=== PATIENT | female | born 1960 | race Caucasian/White ===

== ENCOUNTER 2017-03-16 11:37 | Emergency (ER) | payer MEDICARE, MEDICAID ==
--- NOTE | 2017-03-16 12:41 | Diagnostic Imaging Report ---
[facility] [address] [facility].[address] 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 Pain, swelling and bruising medially. FINDINGS: Examination right foot in plantar, lateral and oblique views demonstrates degenerative changes with narrowing of the interphalangeal joints and the 1st metatarsophalangeal joint. There is no evident fracture and no lytic or blastic lesion. IMPRESSION: Degenerative changes. No fracture. Electronically signed on Mar 16, 2017 12:22:45 PM CDT by: Hugo FINLEY
--- NOTE | 2017-03-16 12:42 | Diagnostic Imaging Report ---
[facility] [address] [facility].[address] [address] Report Submission Date: Mar 16, 2017 12:29:22 PM CDT Patient Study Name: MARKY JOSHI Date: Mar 16, 2017 11:54:18 AM CDT Modality Type: CR Gender: F Description: LOWER EXTREMITY : 58 Institution: [facility] Physician PRESTON VARGAS ([employer]) - ER Right ankle-three views CLINICAL HISTORY: Fall on Thursday. Pain, swelling and bruising. FINDINGS: Examination of the right ankle in AP, lateral oblique views fails to demonstrate evidence of fracture dislocation. The ankle mortise is anatomic. There is no lytic or blastic lesion. Intra-articular fracture of the base of the 2nd and 3rd metatarsals is demonstrated with questionable fracture of the base of the 4th metatarsal. IMPRESSION: Fractures of the bases the 2nd and 3rd metatarsals with questionable fracture of base of the 4th metatarsal. Electronically signed on Mar 16, 2017 12:29:22 PM CDT by: Hugo FINLEY
--- NOTE | 2017-03-16 12:53 | ED Physician Documentation ---
Lower Extremity Injury - HISTORIAN Historian: patient - HPI Stated Complaint: fell pain in right foot Chief Complaint: Lower Extremity Injury Onset: days ago (Thursday) Where: home Severity: severe Context: fall Associated Symptoms:: numbness distally, swelling, snapping sensation, popping sensation, unable to bear weight Modifying Factors:: pain on movement - ROS CONST: no problems CVS/RESP: none GI/: denies: nausea, vomiting MS/SKIN/LYMPH: none NEURO: denies: head injury - PAST HX Past History: other (Fibromyalgia, bipoar, arthritis, HTN; appendectomy, hysterectomy, right elbow ORIF) Allergies/Adverse Reactions: Allergies Allergy/AdvReac Type Severity Reaction Status Date / Time carisoprodol [From Soma] AdvReac Hives Verified 03/16/17 11:54 divalproex sodium AdvReac Serum Verified 03/16/17 11:54 [From Depakote] Sickness lithium AdvReac Hallucinati Verified 03/16/17 11:54 ons Home Medications: Ambulatory Orders Medication Instructions Recorded Atorvastatin Calcium [Atorvastatin 40 mg PO DAILY 03/16/17 Calcium] Buspirone HCl [Buspar] 30 mg PO DAILY 03/16/17 Carvedilol [Coreg] 3.135 mg PO BID 03/16/17 Dexlansoprazole [Dexilant] 60 mg PO DAILY 03/16/17 Furosemide [Lasix] 20 mg PO DAILY 03/16/17 Hydroxyzine HCl [Atarax] 25 mg PO Q4 PRN 03/16/17 Linaclotide [Linzess] 290 mcg PO DAILY 03/16/17 Morphine Sulfate/Naltrexone 1 cap PO DAILY 03/16/17 [Embeda ER 20-0.8 mg Capsule] Oxcarbazepine [Trileptal] 600 mg PO BID 03/16/17 Pot Chloride/Anton Phos/Mag 1 tab PO BID 03/16/17 [Medi-Lyte Tablet] Ropinirole HCl [Requip] 3 mg PO HS 03/16/17 Thyroid,Pork [Nature-Throid] 97.5 mg PO DAILY 03/16/17 Tizanidine HCl [Zanaflex] 4 mg PO Q8 PRN 03/16/17 Topiramate [Topamax] 50 mg PO BID 03/16/17 Venlafaxine HCl [Effexor Xr] 300 mg PO DAILY 03/16/17 Verapamil HCl [Calan] 40 mg PO DAILY 03/16/17 Zaleplon [Sonata] 10 mg PO DAILY 03/16/17 Ziprasidone HCl [Geodon] 60 mg PO BID 03/16/17 clonazePAM [Klonopin] 1 mg PO QID 03/16/17 - SOCIAL HX Smoking History: cigarettes - FAMILY HX Family History: none - VITAL SIGNS Vital Signs: Vital Signs Temp Pulse Resp BP Pulse Ox 72 20 122/71 96 03/16/17 13:51 03/16/17 13:51 03/16/17 13:51 03/16/17 13:51 - REVIEWED ASSESSMENTS Nursing Assessment Reviewed: Yes Vitals Reviewed: Yes Progress - Progress Progress: Reviewed plan of care with patient and friend. OCL applied by nursing, prompt cap refill. Ortho referral provided. Reviewed discharge instructions, patient verbalized understanding. - EKG/XRAY/CT XRAY: ankle (foot with fractures at base of 2, 3 and 4th metatarsals. ) ED Results Lab/Radiology - Radiology Radiology Impressions: Right ankle-three views CLINICAL HISTORY: Fall on Thursday. Pain, swelling and bruising. FINDINGS: Examination of the right ankle in AP, lateral oblique views fails to demonstrate evidence of fracture dislocation. The ankle mortise is anatomic. There is no lytic or blastic lesion. Intra-articular fracture of the base of the 2nd and 3rd metatarsals is demonstrated with questionable fracture of the base of the 4th metatarsal. IMPRESSION: Fractures of the bases the 2nd and 3rd metatarsals with questionable fracture of base of the 4th metatarsal. Electronically signed on Mar 16, 2017 12:29:22 PM CDT by: Hugo Presley - Orders Orders: ED Orders Category Date Time Status Short Leg Splint 1T Care 03/16/17 12:41 Active ANKLE 3 VIEWS OR MORE [RAD] Stat Exams 03/16/17 Completed FOOT 3 VIEWS OR MORE [RAD] Stat Exams 03/16/17 Completed Lower Extremities Injury Phy - Physical Exam General Appearance: mild distress Hips: bilateral hip: non-tender, normal inspection, normal range of motion, no evidence of injury Knees: bilateral: non-tender, normal inspection, normal range of motion, no evidence of injury Ankle: right: non-tender, normal inspection, normal range of motion, no evidence of injury, left: bone tenderness, deformity, limited range of motion, pain, soft tissue tenderness, swelling Foot: right foot: non-tender, normal inspection, normal range of motion, no evidence of injury, left foot: limited range of motion, pain, soft tissue tenderness, swelling Gait: limited by pain, unable to bear weight Neuro/Vascular/Tendon: no vascular compromise, motor nml, sensation nml, ROM nml Resp/CVS: chest non-tender, breath sounds nml, heart sounds nml, no resp. distress, lungs clear, reg. rate & rhythm Abdomen: non-tender, pelvis stable Discharge Clincal Impression: Multiple closed fractures of metatarsal bone Qualifiers: Encounter type: initial encounter Laterality: left Qualified Code(s): S92.302A - Fracture of unspecified metatarsal bone(s), left foot, initial encounter for closed fracture Referrals: Gen Ortega DO [Primary Care Provider] - 2 Days Home Medications: Ambulatory Orders Atorvastatin Calcium [Atorvastatin Calcium] 40 mg PO DAILY 03/16/17 Buspirone HCl [Buspar] 30 mg PO DAILY 03/16/17 Carvedilol [Coreg] 3.135 mg PO BID 03/16/17 Dexlansoprazole [Dexilant] 60 mg PO DAILY 03/16/17 Furosemide [Lasix] 20 mg PO DAILY 03/16/17 Hydroxyzine HCl [Atarax] 25 mg PO Q4 PRN 03/16/17 Linaclotide [Linzess] 290 mcg PO DAILY 03/16/17 Morphine Sulfate/Naltrexone [Embeda ER 20-0.8 mg Capsule] 1 cap PO DAILY Oxcarbazepine [Trileptal] 600 mg PO BID 03/16/17 Pot Chloride/Anton Phos/Mag [Medi-Lyte Tablet] 1 tab PO BID 03/16/17 Ropinirole HCl [Requip] 3 mg PO HS 03/16/17 Thyroid,Pork [Nature-Throid] 97.5 mg PO DAILY 03/16/17 Tizanidine HCl [Zanaflex] 4 mg PO Q8 PRN 03/16/17 Topiramate [Topamax] 50 mg PO BID 03/16/17 Venlafaxine HCl [Effexor Xr] 300 mg PO DAILY 03/16/17 Verapamil HCl [Calan] 40 mg PO DAILY 03/16/17 Zaleplon [Sonata] 10 mg PO DAILY 03/16/17 Ziprasidone HCl [Geodon] 60 mg PO BID 03/16/17 clonazePAM [Klonopin] 1 mg PO QID 03/16/17 Condition: Good Disposition: 01 HOME, SELF-CARE Decision to Admit: NO Decision Time: 13:30
[2017-03-16 13:53] VITALS: BP 122/71
== END 2017-03-16 13:51 | disposition home or self-care (01) ==
LOC: ED 11:37
DX: S92.302A Fracture of unspecified metatarsal bone(s), left foot, initial encounter for closed fracture (principal); W19.XXXA Unspecified fall, initial encounter; Y93.9 Activity, unspecified; Y99.9 Unspecified external cause status
CPT/HCPCS: 73610; 73630; 99283; 99284

== ENCOUNTER 2018-03-23 14:18 | Outpatient (CLI) | payer MEDICARE, MEDICAID | END 2018-03-23 14:20 | LOC: CARD 14:18 | PROVIDERS: ATTEND Internal Medicine Cardiovascular Disease | DX: R55 Syncope and collapse (principal); I35.1 Nonrheumatic aortic (valve) insufficiency; E78.5 Hyperlipidemia, unspecified; I10 Essential (primary) hypertension; Z72.0 Tobacco use; Z79.899 Other long term (current) drug therapy | CPT/HCPCS: G0463 ==

== ENCOUNTER 2018-05-04 13:37 | Outpatient (CLI) | payer MEDICARE, OTHER | END 2018-05-04 13:40 | LOC: CARD 13:37 | PROVIDERS: ATTEND Internal Medicine Cardiovascular Disease | DX: R55 Syncope and collapse (principal); I34.0 Nonrheumatic mitral (valve) insufficiency; E78.5 Hyperlipidemia, unspecified; I10 Essential (primary) hypertension; Z72.0 Tobacco use | CPT/HCPCS: G0463 ==

== ENCOUNTER 2018-06-15 11:25 | Outpatient (CLI) | payer MEDICARE, OTHER | END 2018-06-15 11:26 | LOC: CARD 11:25 | PROVIDERS: ATTEND Internal Medicine Cardiovascular Disease | DX: R55 Syncope and collapse (principal); I35.1 Nonrheumatic aortic (valve) insufficiency; E78.5 Hyperlipidemia, unspecified; I10 Essential (primary) hypertension; R07.9 Chest pain, unspecified | CPT/HCPCS: G0463 ==

== ENCOUNTER 2018-11-04 20:13 | Emergency (ER) | payer MEDICARE, OTHER ==
--- NOTE | 2018-11-04 20:58 | ED Physician Documentation ---
Abdominal Pain - HISTORIAN Historian: patient - HPI Stated Complaint: LLQ abdominal pain Chief Complaint: Abdominal Pain Additonal Information: Patient presents to ED with a one week history of increasing LLQ pain, worsening constipation. Patient states she has a history of diverticulitis and she states these are the symptoms she has when she has a flare. Onset: days ago (7) Duration: gradual Timing: worse Context: denies: out of country travel, bad food Severity: moderate Quality: pain, aching, dull, cramping Associated Symptoms: denies: fever, chills, nausea, vomiting, diarrhea Exacerbated by: movements Relieved by: nothing - ROS CONST: no problems GI/: constipation CVS/RESP: none EYES/ENT: none MS/SKIN/LYMPH: none NEURO/PSYCH: none - SOCIAL HX Smoking History: cigarettes, greater than 1 pack/day Alcohol Use: none Drug Use: none - FAMILY HX Family History: none - PAST HX Past History: none Other History: none Surgeries/Procedures: appendectomy, hysterectomy Home Medications: Ambulatory Orders Medication Instructions Recorded Atorvastatin Calcium 40 mg PO DAILY 03/16/17 Buspirone HCl [Buspar] 30 mg PO DAILY 03/16/17 Carvedilol [Coreg] 3.135 mg PO BID 03/16/17 Dexlansoprazole [Dexilant] 60 mg PO DAILY 03/16/17 Furosemide [Lasix] 20 mg PO DAILY 03/16/17 Hydroxyzine HCl [Atarax] 25 mg PO Q4 PRN 03/16/17 Linaclotide [Linzess] 290 mcg PO DAILY 03/16/17 Morphine Sulfate/Naltrexone 1 cap PO DAILY 03/16/17 [Embeda ER 20-0.8 mg Capsule] Oxcarbazepine [Trileptal] 600 mg PO BID 03/16/17 Pot Chloride/Anton Phos/Mag 1 tab PO BID 03/16/17 [Medi-Lyte Tablet] Ropinirole HCl [Requip] 3 mg PO HS 03/16/17 Thyroid,Pork [Nature-Throid] 97.5 mg PO DAILY 03/16/17 Tizanidine HCl [Zanaflex] 4 mg PO Q8 PRN 03/16/17 Topiramate [Topamax] 50 mg PO BID 03/16/17 Venlafaxine HCl [Effexor Xr] 300 mg PO DAILY 03/16/17 Verapamil HCl [Calan] 40 mg PO DAILY 03/16/17 Zaleplon [Sonata] 10 mg PO DAILY 03/16/17 Ziprasidone HCl [Geodon] 60 mg PO BID 03/16/17 clonazePAM [Klonopin] 1 mg PO QID 03/16/17 Amoxicillin/Potassium Clav 1 each PO BID #28 tablet 11/04/18 [Augmentin 875Mg/125Mg] Sennosides [Senokot] 17.2 mg PO HS 11/04/18 metroNIDAZOLE [Flagyl] 500 mg PO Q6H #56 tablet 11/04/18 Allergies/Adverse Reactions: Allergies Allergy/AdvReac Type Severity Reaction Status Date / Time acetaminophen [From Tylenol] Allergy Verified 11/04/18 22:50 carisoprodol [From Soma] AdvReac Hives Verified 03/16/17 11:54 divalproex sodium AdvReac Serum Verified 03/16/17 11:54 [From Depakote] Sickness lithium AdvReac Hallucinati Verified 03/16/17 11:54 ons - VITAL SIGNS Vital Signs: Vital Signs Temp Pulse Resp BP Pulse Ox 98.3 F 94 H 14 157/81 99 11/04/18 20:14 11/04/18 20:14 11/04/18 20:14 11/04/18 20:14 11/04/18 20:14 - REVIEWED ASSESSMENTS Nursing Assessment Reviewed: Yes Vitals Reviewed: Yes Progress - Results/Orders Results/Orders: UA - negative ED Results Lab/Radiology - Lab Results Lab Results: Lab Results 11/04/18 11/04/18 11/04/18 21:50 21:25 21:25 WBC 19.20 K/ul H K/ul (4.00-12.00) RBC 5.11 M/ul M/ul (3.90-5.20) Hgb 15.1 g/dL g/dL (12.0-16.0) Hct 45.9 % % (34.5-46.5) MCV 90.0 fl fl (80.0-100.0) MCH 29.6 pg pg (28.0-34.0) MCHC 32.9 g/dL g/dL (30.0-36.0) RDW 14.0 % % (11.3-14.3) Plt Count 172 K/mm3 K/mm3 (130-400) Neut % (Auto) 77.9 % % (39.0-79.0) Lymph % (Auto) 13.5 % L % (16.0-50.0) [place] % (Auto) 6.7 % % (0.0-11.0) Eos % (Auto) 1.0 % % (0.0-6.8) Baso % (Auto) 0.9 (0.0-1.5) Neut # (Auto) 14.9 # k/uL H # k/uL (1.4-7.7) Lymph # (Auto) 2.6 # k/uL # k/uL (0.6-4.0) [place] # (Auto) 1.3 # k/uL H # k/uL (0.0-0.9) Eos # (Auto) 0.2 # k/uL # k/uL (0.0-0.6) Baso # (Auto) 0.2 # k/uL # k/uL (0.0-0.5) Sodium 134 mmol/L L mmol/L (136-145) Potassium 3.4 mmol/L L mmol/L (3.5-5.1) Chloride 101 mmol/L mmol/L (98-107) Carbon Dioxide 28 mmol/L mmol/L (22-30) BUN 14 mg/dL mg/dL (7-17) Creatinine 0.60 mg/dL mg/dL (0.52-1.04) Estimated Creat Clear 140 Est GFR ( Amer) > 60 (60 - ) Est GFR (Non-Af Amer) > 60 (60 - ) Glucose 106 mg/dL mg/dL (74-106) Calcium 9.2 mg/dL mg/dL (8.4-10.2) Total Bilirubin 1.0 mg/dL mg/dL (0.2-1.3) AST 30 U/L U/L (15-46) ALT 17 U/L U/L (13-69) Alkaline Phosphatase 147 U/L H U/L (38-126) Total Protein 7.2 g/dL g/dL (6.3-8.2) Albumin 4.3 g/dL g/dL (3.5-5.0) Urine Color Chantel (YELLOW) Urine Appearance Clear (CLEAR) Urine pH 6.0 (5.0 - 8.0) Ur Specific Stanton >=1.030 H (1.010-1.030) Urine Protein 2+ mg/dL H mg/dL (NEGATIVE) Urine Ketones 4+ mg/dL H mg/dL (NEGATIVE) Urine Occult Blood 1+ H (NEGATIVE) Urine Nitrite Negative (NEGATIVE) Urine Bilirubin 2+ H (NEGATIVE) Urine Urobilinogen 1.0 Eu Eu (0.2-1.0) Ur Leukocyte Esterase Negative (NEGATIVE) Urine Glucose Negative mg/dL mg/dL (NEGATIVE) - Radiology Radiology Impressions: Computed tomography abdomen pelvis without contrast History: Left lower quadrant pain. History of diverticulitis, appendectomy, hysterectomy Findings: Transverse abdomen and pelvis sections are obtained without contrast. There are no comparisons. The lung bases are clear. Cholelithiasis and upper normal caliber gallbladder are observed without mural thickening or biliary duct dilatation. The liver, kidneys, adrenals, spleen, pancreas, and mesenteric structures are unremarkable. Fluid is present in multiple normal caliber small bowel loops and the right colon. Minimal aortic atherosclerosis is present. Multilevel lumbar facet arthropathy is present. Numerous sigmoid diverticula and diffuse sigmoid mural thickening are observed with moderate perisigmoid inflammation. Hysterectomy and appendectomy been performed. The urinary bladder is decompressed. Impression: 1. Diffuse sigmoid mural thickening and numerous sigmoid diverticula with extensive surrounding inflammation. Differential includes acute diverticulitis versus sigmoid colitis. 2. Cholelithiasis. 3. Hysterectomy and appendectomy. Electronically signed on Nov 04, 2018 10:47:58 PM PATIENT SERVICES REPRESENTATIVE by: Kennedy Silva - Orders Orders: ED Orders Category Date Time Status Place IV Lock 1T Care 11/04/18 20:[address] ABD & PELVIS W/O CON Stat Exams 11/04/18 Taken CBC/PLATELET/DIFF Routine Lab 11/04/18 21:25 Completed CMP Routine Lab 11/04/18 21:25 Completed UA MACRO DIP ONLY Routine Lab 11/04/18 21:50 Completed 0.9 % Sodium Chloride [Normal Saline] 1,000 ml Med 11/04/18 21:22 Discontinued IV Q1H Ciprofloxacin HCl [Cipro] Med 11/04/18 22:31 Discontinued 500 mg PO NOW ONE HYDROcodone /APAP 5/325 [[place] 5/325] Med 11/04/18 22:37 Stop Req 1 each PO NOW ONE fentaNYL CITRATE/PF Med 11/04/18 22:51 Once 25 mcg IVP NOW ONE metroNIDAZOLE [Flagyl] Med 11/04/18 22:31 Discontinued 500 mg PO NOW ONE Abdominal Pain Physical Exam - Physical Exam General Appearance: no acute distress, alert EENT: DIAMOND NECK: supple RESPIRATORY: no resp distress, chest non-tender, breath sounds normal CVS: reg rate & rhythm, heart sounds normal ABDOMEN: soft, normal bowel sounds, tenderness (suprapubic, LLQ) BACK: no CVA tenderness SKIN: warm/dry, normal color EXTREMITIES: non-tender, no edema NEURO: oriented X3, motor nml Vital Signs: Vital Signs Temp Pulse Resp BP Pulse Ox 98.3 F 94 H 14 157/81 99 11/04/18 20:14 11/04/18 20:14 11/04/18 20:14 11/04/18 20:14 11/04/18 20:14 Discharge Clincal Impression: Diverticulitis large intestine Qualifiers: Diverticulitis bleeding: without bleeding Diverticulitis complication: without perforation or abscess Qualified Code(s): K57.32 - Diverticulitis of large intestine without perforation or abscess without bleeding Prescriptions: Amoxicillin/Potassium Clav [Augmentin 875Mg/125Mg] 1 each PO BID #28 tablet metroNIDAZOLE [Flagyl] 500 mg PO Q6H #56 tablet Referrals: Angel Beth MD [Primary Care Provider] - 2 Days Additional Instructions: 1. Take antibiotic as directed, complete the course 2. Narcotic pain medications will cause constipation. Use a senokot, colace, miralax daily while taking these medications 3. Follow up with PCP within 1 week 4. Return to ER for new or worsening symptoms. Comments: Cipro and Flagyl would be ideal antibiotic regimen, however, Trileptal and Tizandine interact. Will give Augmentin instead of Cipro. Condition: Stable Disposition: 01 HOME, SELF-CARE Decision to Admit: NO Date of Decison to Admit: 11/04/18 Decision Time: 23:02
[2018-11-04] MEDS ORDERED: 0.9 % SODIUM CHLORIDE 1,000 ML IV ONE (21:22)
[2018-11-04 21:57] LABS: eGFR (Non-African) > 60
[2018-11-04 21:58] LABS: BASOPHILS % 0.9 (0.0-1.5); MEAN CORPUSCULAR HEMOGLOBIN 29.6 pg (28.0-34.0); MONOCYTES % 6.7 % (0.0-11.0); NEUTROPHILS # 14.9 # k/uL (1.4-7.7)
[2018-11-04] MEDS ORDERED: CIPROFLOXACIN HCL 500 MG TABLET PO ONE (22:31)
[2018-11-04] MEDS ORDERED: metroNIDAZOLE 500 MG TABLET PO ONE (22:31)
[2018-11-04 22:35] LABS: APPEARANCE,URINE CLEAR (CLEAR); COLOR,URINE AMBER (YELLOW); OCCULT BLOOD,URINE 1+ (NEGATIVE)
[2018-11-04] MEDS ORDERED: HYDROcodone /APAP 5/325 1 EACH TABLET PO ONE (22:37)
[2018-11-04] MEDS ORDERED: fentaNYL CITRATE/PF 100 MCG/2 ML INJ. IVP ONE (22:51)
[2018-11-04 23:15] VITALS: BP 172/72
--- NOTE | 2018-11-05 04:33 | Diagnostic Imaging Report ---
NAZ BANUELOS [facility] [address] [facility] [address] [place], [place]. [address] Report Submission Date: Nov 04, 2018 10:47:58 PM PROJECT GEOPHYSICIST Patient Study Name: MARKY JOSHI Date: Nov 04, 2018 10:17:00 PM PROJECT GEOPHYSICIST Modality Type: CT\SR Gender: F Description: CT ABD PELVIS W/O CO : 58 Institution: [facility] Physician: NAZ BANUELOS Computed tomography abdomen pelvis without contrast History: Left lower quadrant pain. History of diverticulitis, appendectomy, hysterectomy Findings: Transverse abdomen and pelvis sections are obtained without contrast. There are no comparisons. The lung bases are clear. Cholelithiasis and upper normal caliber gallbladder are observed without mural thickening or biliary duct dilatation. The liver, kidneys, adrenals, spleen, pancreas, and mesenteric structures are unremarkable. Fluid is present in multiple normal caliber small bowel loops and the right colon. Minimal aortic atherosclerosis is present. Multilevel lumbar facet arthropathy is present. Numerous sigmoid diverticula and diffuse sigmoid mural thickening are observed with moderate perisigmoid inflammation. Hysterectomy and appendectomy been performed. The urinary bladder is decompressed. Impression: 1. Diffuse sigmoid mural thickening and numerous sigmoid diverticula with extensive surrounding inflammation. Differential includes acute diverticulitis versus sigmoid colitis. 2. Cholelithiasis. 3. Hysterectomy and appendectomy. Electronically signed on Nov 04, 2018 10:47:58 PM PROJECT GEOPHYSICIST by: Kennedy FINLEY
== END 2018-11-04 23:14 | disposition home or self-care (01) ==
LOC: ED 20:13
DX: K57.32 Diverticulitis of large intestine without perforation or abscess without bleeding (principal)
CPT/HCPCS: 36415; 74176; 80053; 81002; 85025; 96374; 99283; 99284; J3010; J7030; S1016